=== PATIENT | male | born 1980 | race Caucasian/White ===

== ENCOUNTER 2020-04-13 18:28 | Emergency (ER) | payer SELFPAY ==
[~2020-04-13] VITALS: Ht 167.6 cm; Wt 100.0 kg
[2020-04-13 18:30] VITALS: BP 146/98
== END 2020-04-13 19:19 | disposition left against medical advice (07) ==
LOC: ER 18:28
DX: Z53.21 Procedure and treatment not carried out due to patient leaving prior to being seen by health care provider (principal)